=== PATIENT | male | born 1995 | race Hispanic/Latino ===

== ENCOUNTER 2023-02-06 14:53 | Emergency (ER) | payer SELFPAY ==
[2023-02-06] MEDS ORDERED: Proparacaine 0.5% Opth 15 ML BOT ONE (15:07)
[2023-02-06] MEDS ORDERED: levETIRAcetam 500 MG/5 ML VIAL ONE (15:25)
[2023-02-06 15:35] LABS: #Monocytes 0.4 thou/uL (0.11-0.59); #Neutrophils 7.1 thou/uL (1.40-6.50); %Basophils 0.4 % (0.0-1.0); %Lymphocytes 3.6 % (21.0-51.0); %Monocytes 4.5 % (0.0-10.0); %Neutrophils 91.1 % (42.0-75.0); Hematocrit 44.6 % (42.0-52.0); Hemoglobin 16.6 g/dL (14.0-18.0); Mean Corpuscular HGB CONC 37.2 g/dL (32.0-36.0); Mean Corpuscular Hemoglobin 35.5 pg (27.0-31.0); Mean Corpuscular Volume 95.5 fl (78.0-98.0); Mean Platelet Volume 10.2 fL (7.4-10.4); Platelet Count 204 10x3/uL (130-400); RBC Distribution Width 12.1 % (11.5-14.5); Red Blood Cell (RBC) Count 4.67 mill/uL (4.70-6.10); White Blood Cell (WBC) Count 7.8 10x3/uL (4.8-10.8)
[2023-02-06 16:00] LABS: ALT (SGPT) 155 U/L (8-55); AST (SGOT) 409 U/L (5-34); Albumin 4.9 g/dL (3.5-5.0); Alkaline Phosphatase 90 U/L (40-110); Anion Gap 20 mmol/L (10-20); BUN (Urea Nitrogen) 6 mg/dL (8.9-20.6); Bilirubin, Total 6.7 mg/dL (0.2-1.2); Calc. Creatinine Clearance 0 mL/min (70-130); Calcium 9.6 mg/dL (7.8-10.44); Carbon Dioxide 23 mmol/L (22-29); Chloride 94 mmol/L (98-107); Estimated GFR 104; Globulin 2.6 g/dL (2.4-3.5); Glucose 118 mg/dL (70-105); Potassium 3.9 mmol/L (3.5-5.1); Protein, Total 7.5 g/dL (6.0-8.3); Sodium 133 mmol/L (136-145)
[2023-02-06 16:01] LABS: Acetaminophen Less than 10 mcg/mL (10.0-30.0); Alcohol Less than 10.0 mg/dL (Less than 10); Lipase 27 U/L (8-78); Salicylate Less than 8.0 mg/dL (15.0-30.0)
[2023-02-06 16:04] LABS: Troponin I Less than 0.010 ng/mL (< 0.028)
[2023-02-06] MEDS ORDERED: Morphine 4 MG/ML VIAL ONE ×2 (16:58→19:15)
[2023-02-06] MEDS ORDERED: Lidocaine 1% PF 5 ML VIAL ONE (17:50)
[2023-02-06 18:15] LABS: Bilirubin Negative (Negative); Blood, Urine 2+ (Negative); CAUTI Indications for Culture Pelvic or flank pain; Clarity Clear (Clear); Glucose, Urine (Dipstick) Normal (Negative); Ketone, Urine 40 mg/dL (Negative); Leukocyte Negative Leu/uL (Negative); Nitrite Negative (Negative); Protein, Urine (Dipstick) 50 mg/dL (Neg-Trace); RBC/HPF 0-3 HPF (0-3); Specific Gravity, Urine 1.015 (1.002-1.036); Squamous Epithelial None Seen HPF (0-3); Urobilinogen 3 mg/dL (Less than 2); WBC/HPF 0-3 HPF (0-3)
[2023-02-06 18:16] LABS: Bacteria/HPF 1+ HPF (None Seen); Urine Culture Reflex No No
[2023-02-06 18:18] LABS: Amphetamine Not Detected (NotDetected); Barbiturates Screen Not Detected (NotDetected); Benzodiazepine Screen Not Detected (NotDetected); Cocaine Metabolite Screen Not Detected (NotDetected); Methadone Not Detected (NotDetected); Methamphetamine Not Detected (NotDetected); Opiate Screen Detected (NotDetected); Oxycodone Screen Not Detected (NotDetected); Phencyclidine (PCP) Not Detected (NotDetected); THC/Cannabinoid Screen Detected (NotDetected); Tricyclic Screen Not Detected (NotDetected)
== END 2023-02-06 22:59 | disposition home or self-care (01) ==
LOC: ERS 14:53
DX: S02.19XA Other fracture of base of skull, initial encounter for closed fracture (principal); S02.609A Fracture of mandible, unspecified, initial encounter for closed fracture; S01.112A Laceration without foreign body of left eyelid and periocular area, initial encounter; J43.8 Other emphysema; H74.8X3 Other specified disorders of middle ear and mastoid, bilateral; R56.9 Unspecified convulsions; F17.200 Nicotine dependence, unspecified, uncomplicated; X58.XXXA Exposure to other specified factors, initial encounter
CPT/HCPCS: 12011; 36415; 70450; 70486; 80053; 80306; 80307; 81001; 83690; 84484; 85025; 93005; 96365; 96375; 96376; J1953; J2270